=== PATIENT | female | born 1985 | race African-American/Black ===

== ENCOUNTER → 2017-05-13 | Outpatient (CLI) | payer BC ==
[2017-05-15 07:11] LABS: LYME DISEASE IGG AND IGM AB <0.91 ISR (0.00-0.90)
== END ==
LOC: OD 12:21
PROVIDERS: ATTEND Internal Medicine
DX: T73.2XXA Exhaustion due to exposure, initial encounter (principal)
CPT/HCPCS: 36415; 86617; 86618

== ENCOUNTER 2017-12-31 01:51 | Emergency (ER) | payer BC ==
[2017-12-31] MEDS ORDERED: IBUPROFEN 600 MG TABLET PO ONE (02:49)
[2017-12-31] MEDS ORDERED: OXYCODONE HCL IR 5 MG TABLET PO ONE (02:52)
--- NOTE | 2017-12-31 02:54 | ER Document Report ---
ED General - General Chief Complaint: L foot pain/ no injury Stated Complaint: LEFT FOOT PAIN NO KNOWN INJURY Time Seen by Provider: 12/31/17 02:32 TRAVEL OUTSIDE OF THE [place] IN LAST 30 DAYS: No - HPI Notes: Patient is a 32-year-old female history of nephrectomy from a ureteral blockage and UTI in 2011 and history of chronic pain currently on Butrans and oxycodone presents with report of progressive 2-3 day history of left plantar foot pain. Patient denies any cough congestion or fever, but arrives with a temperature of 100.1. She does report some urinary frequency and has a history of recurrent UTIs. The patient denies any chest pain or abdominal pain. She is unaware of any specific trauma to the feet. The patient reports no numbness or paresthesia. The patient states of foot pain is worse when she is ambulating. She was - Related Data Allergies/Adverse Reactions: iodine [Iodine] Allergy (Verified 12/12/15 14:51) rash nitrofurantoin macrocrystalline [From Macrodantin] Allergy (Verified 12/12/15 14 :51) Generalized rash Past Medical History - General Information source: Patient - Social History Smoking Status: Never Smoker Frequency of alcohol use: None Drug Abuse: None Lives with: Family Family History: Reviewed & Not Pertinent - Past Medical History Cardiac Medical History: Denies: Hx Coronary Artery Disease, Hx Heart Attack, Hx Hypertension Pulmonary Medical History: Denies: Hx Asthma, Hx Bronchitis, Hx COPD, Hx Pneumonia Neurological Medical History: Denies: Hx Cerebrovascular Accident, Hx Seizures Renal/ Medical History: Reports: Hx Kidney Stones Musculoskeltal Medical History: Denies Hx Arthritis Past Surgical History: Reports: Hx Appendectomy, Hx Section, Hx Genitourinary Surgery - CYSTO, Hx Gynecologic Surgery - d/c 1 wk ago, Hx Kidney (Renal Surgery) - Sep, 2012, 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 Denies recent illness. EENT: Denies eye, ear, throat, or mouth pain or symptoms. Denies nasal or sinus congestion or discharge. Denies throat, tongue, or mouth swelling or difficulty swallowing. CARDIOVASCULAR: Denies chest pain. Denies palpitations or racing or irregular heart beat. Denies ankle edema. RESPIRATORY: Denies cough, cold, or chest congestion. Denies shortness of breath, difficulty breathing, or wheezing. GASTROINTESTINAL: Denies abdominal pain or distention. Denies nausea, vomiting , or diarrhea. Denies blood in vomitus, stools, or per rectum. Denies black, tarry stools. Denies constipation. GENITOURINARY: Reports occasional dysuria and frequency. FEMALE GENITOURINARY: Denies vaginal discharge or odor. No concern for STD. MUSCULOSKELETAL: Denies back or neck pain or stiffness. SKIN: Denies rash, lesions or sores. HEMATOLOGIC : Denies easy bruising or bleeding. LYMPHATIC: Denies swollen, enlarged glands. NEUROLOGICAL: Denies confusion or altered mental status. Denies passing out or loss of consciousness. Denies dizziness or lightheadedness. Denies headache. Denies weakness or paralysis or loss of use of either side. Denies problems with gait or speech. Denies sensory loss, numbness, or tingling. Denies seizures. PSYCHIATRIC: Denies anxiety or stress. Denies depression, suicidal ideation, or homicidal ideation. ALL OTHER SYSTEMS REVIEWED AND NEGATIVE. Dictation was performed using [employer] voice recognition software Physical Exam - Vital signs Vitals: Temp Pulse Resp BP Pulse Ox 100.1 F 92 18 119/71 96 12/31/17 02:06 12/31/17 02:06 12/31/17 02:06 12/31/17 02:06 12/31/17 02:06 - Notes Notes: PHYSICAL EXAMINATION: GENERAL: Well-appearing, well-nourished and in no acute distress. HEAD: Atraumatic, normocephalic. EYES: Pupils equal round and reactive to light, extraocular movements intact, conjunctiva are normal. ENT: Nares patent, oropharynx clear without exudates. Moist mucous membranes. NECK: Normal range of motion, supple without lymphadenopathy LUNGS: Breath sounds clear to auscultation bilaterally and equal. No wheezes rales or rhonchi. HEART: Regular rate and rhythm without murmurs ABDOMEN: Soft, nontender, nondistended abdomen. No guarding, no rebound. No masses appreciated. Female : deferred Musculoskeletal: Normal range of motion. No cyanosis. Tender through the left plantar fascial region. There is no erythema. There is no bony deformity or crepitance. Distally the patient is neurovascularly intact. There is no proximal erythema or adenopathy. There is no ankle pain or knee pain. No cellulitis or abscess. NEUROLOGICAL: Cranial nerves grossly intact. Normal speech, normal gait. Normal sensory, motor exams PSYCH: Normal mood, normal affect. SKIN: Warm, Dry, normal turgor, no rashes or lesions noted. Course - Re-evaluation Re-evalutation: 12/31/17 07:32 Patient is currently on chronic narcotic analgesia. Patient was given ibuprofen. Lab work showed no evidence for renal insufficiency or significant infection or other abnormality. X-ray showed no obvious stress fracture or heel spur, but the patient was told that early stress fracture cannot be excluded. Patient may need follow-up imaging and to follow-up also with podiatry. - Vital Signs Vital signs: Temp Pulse Resp BP Pulse Ox 98.9 F 84 20 117/69 97 12/31/17 05:03 12/31/17 05:03 12/31/17 05:03 12/31/17 05:03 12/31/17 05:03 - Laboratory Result Diagrams: 12/31/17 02:55 12/31/17 02:55 Laboratory results interpreted by me: 12/31/17 12/31/17 02:50 02:55 RBC 3.64 L Hgb 11.1 L Hct 33.4 L Urine Blood MODERATE H Ur Leukocyte Esterase TRACE H Discharge - Discharge Clinical Impression: Plantar fasciitis of left foot Urinary tract infection Qualifiers: Urinary tract infection type: acute cystitis Hematuria presence: without hematuria Qualified Code(s): N30.00 - Acute cystitis without hematuria Condition: Stable Disposition: HOME, SELF-CARE Instructions: Plantar Fasciitis or Heel Spur ([facility]), Trimethoprim-Sulfa ([facility]), Urinary Tract Infection ([facility]) Additional Instructions: Use arch supports for your shoes. Use crutches if it is too painful to bear weight. Return to the emergency department case of fever, chills, vomiting. Prescriptions: Ibuprofen 600 mg PO Q8HP PRN #30 tablet PRN Reason: Sulfamethoxazole/Trimethoprim [Bactrim Ds Tablet] 1 each PO BID #10 tablet Forms: Return to Work Referrals: PODIATRY [Provider Group] - Follow up as needed
[2017-12-31 03:15] LABS: ABSOLUTE LYMPHOCYTES (AUTO) 2.2 10^3/uL (0.5-4.7); ABSOLUTE MONOCYTES (AUTO) 0.8 10^3/uL (0.1-1.4); ABSOLUTE NEUT (AUTO) 4.7 10^3/uL (1.7-8.2); BASOPHILS % (AUTO) 0.3 % (0-2); EOSINOPHILS % (AUTO) 0.5 % (0-6); HEMATOCRIT 33.4 % (36.0-47.0); HEMOGLOBIN 11.1 g/dL (12.0-15.5); LYMPHOCYTES % (AUTO) 28.5 % (13-45); MEAN CORPUSCULAR HEMOGLOBIN 30.5 pg (27.0-33.4); MEAN CORPUSCULAR HGB CONC 33.2 g/dL (32.0-36.0); MEAN CORPUSCULAR VOLUME 92 fl (80-97); MONOCYTES % (AUTO) 10.3 % (3-13); PLATELET COUNT 251 10^3/uL (150-450); RED BLOOD COUNT 3.64 10^6/uL (3.72-5.28); RED CELL DISTRIBUTION WIDTH 13.6 % (11.5-14.0); SEGMENTED NEUTROPHILS % (AUTO) 60.4 % (42-78); TOTAL CELLS COUNTED % (AUTO) 100 %; WHITE BLOOD COUNT 7.8 10^3/uL (4.0-10.5)
[2017-12-31 03:18] LABS: APPEARANCE,URINE CLEAR; BILIRUBIN,URINE NEGATIVE (NEGATIVE); COLOR,URINE YELLOW; GLUCOSE, URINE NEGATIVE (NEGATIVE); KETONES,URINE NEGATIVE (NEGATIVE); LEUKOCYTE ESTERASE,URINE TRACE (NEGATIVE); NITRITE,URINE NEGATIVE (NEGATIVE); PROTEIN,URINE NEGATIVE (NEGATIVE); URINE SPECIFIC GRAVITY 1.024; UROBILINOGEN,URINE NEGATIVE mg/dL (<2.0)
[2017-12-31 03:25] LABS: ANION GAP 12 (5-19); BLOOD UREA NITROGEN 15 mg/dL (7-20); CALCIUM 9.4 mg/dL (8.4-10.2); CARBON DIOXIDE 25 mmol/L (22-30); CHLORIDE 104 mmol/L (98-107); GLUCOSE 93 mg/dL (75-110); POTASSIUM 4.4 mmol/L (3.6-5.0); SODIUM 140.5 mmol/L (137-145)
--- NOTE | 2017-12-31 03:42 | RADIOLOGY REPORT (SQ) ---
EXAM DESCRIPTION: FOOT LEFT 2 VIEWS CLINICAL HISTORY: 32 years, Female, L plantar fasciitis pain COMPARISON: None. NUMBER OF VIEWS: 2 Findings: Bones, joints, and soft tissues appear intact. IMPRESSION: Normal left foot.
[2017-12-31] MEDS ORDERED: SULFAMETHOXAZOLE/TRIMETHOPRIM 800-160 MG TABLET PO ONE (04:38)
[2017-12-31 05:04] VITALS: BP 117/69
== END 2017-12-31 05:00 | disposition home or self-care (01) ==
LOC: ER 01:51
DX: M72.2 Plantar fascial fibromatosis (principal); N30.00 Acute cystitis without hematuria; M79.672 Pain in left foot
CPT/HCPCS: 36415; 80048; 81001; 81025; 85025; 87086; 99284

== ENCOUNTER 2018-01-15 09:56 | Emergency (ER) | payer OTHER, BC ==
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
[2018-01-15] MEDS ORDERED: HYDROCODONE/ACETAMINOPHEN 5-325 MG TABLET PO ONE (12:54)
[2018-01-15 13:26] VITALS: BP 102/66
== END 2018-01-15 13:25 | disposition home or self-care (01) ==
LOC: ER 09:56
DX: S30.1XXA Contusion of abdominal wall, initial encounter (principal); S20.229A Contusion of unspecified back wall of thorax, initial encounter; M54.89 Other dorsalgia; V43.52XA Car driver injured in collision with other type car in traffic accident, initial encounter; Z88.1 Allergy status to other antibiotic agents
CPT/HCPCS: 72070; 74176; 81025; 99284

== ENCOUNTER 2018-04-16 11:15 | Emergency (ER) | payer BC, OTHER ==
--- NOTE | 2018-04-16 12:16 | ER Document Report ---
ED Medical Screen (RME) - General Chief Complaint: Vag Bleeding, +preg <12wks Stated Complaint: VAGINAL BLEEDING Time Seen by Provider: 04/16/18 12:11 Notes: RAPID MEDICAL EVALUATION DISCLOSURE I have seen this patient as part of a Rapid Medical Evaluation and, if applicable, placed any initially appropriate orders. The patient will be seen and fully evaluated, including a full history and physical exam, by a provider ( in Main ED or Fast Track) when a room becomes available. 33-year-old female approximately 4 weeks gestation here with complaints of lower abdominal cramping and vaginal spotting that started overnight. She is had some small dime sized clots with the bleeding. Has taken Aleve for the cramping. Does not have any dysuria fevers chills discharge. Has not yet followed up with [facility]. EXAM No abdominal TTP No CVA TTP TRAVEL OUTSIDE OF THE [place]S. IN LAST 30 DAYS: No - Related Data Allergies/Adverse Reactions: iodine [Iodine] Allergy (Verified 04/16/18 12:07) rash nitrofurantoin macrocrystalline [From Macrodantin] Allergy (Verified 04/16/18 12 :07) Generalized rash Past Medical History - Social History Chew tobacco use (# tins/day): No Frequency of alcohol use: None Drug Abuse: None - Past Medical History Cardiac Medical History: Denies: Hx Coronary Artery Disease, Hx Heart Attack, Hx Hypertension Pulmonary Medical History: Denies: Hx Asthma, Hx Bronchitis, Hx COPD, Hx Pneumonia Neurological Medical History: Denies: Hx Cerebrovascular Accident, Hx Seizures Renal/ Medical History: Reports: Hx Kidney Stones. 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
[2018-04-16 13:07] LABS: APPEARANCE,URINE CLEAR; BILIRUBIN,URINE NEGATIVE (NEGATIVE); COLOR,URINE YELLOW; GLUCOSE, URINE NEGATIVE (NEGATIVE); KETONES,URINE NEGATIVE (NEGATIVE); LEUKOCYTE ESTERASE,URINE TRACE (NEGATIVE); NITRITE,URINE NEGATIVE (NEGATIVE); PROTEIN,URINE NEGATIVE (NEGATIVE); URINE SPECIFIC GRAVITY 1.012; UROBILINOGEN,URINE NEGATIVE mg/dL (<2.0)
[2018-04-16 13:41] LABS: T.VAGINALIS (WET MOUNT) NO TRICHOMONAS SEEN; WBCS (WET MOUNT) 2+ WBCS SEEN; YEAST (WET MOUNT) NO YEAST SEEN
[2018-04-16 13:42] LABS: BACTERIA (WET MOUNT) 3+ BACTERIA SEEN; RBCS (WET MOUNT) 4+ RBCS SEEN
--- NOTE | 2018-04-16 14:12 | ER Document Report ---
ED GI/ - General Chief Complaint: Vag Bleeding, +preg <12wks Stated Complaint: VAGINAL BLEEDING Time Seen by Provider: 04/16/18 12:11 Mode of Arrival: Ambulatory Information source: Patient Notes: 33-year-old is 3-4 weeks. She had a positive test at [facility] yesterday. She started cramping last night and bleeding this morning. No vaginal discharge or odor and no dysuria. No fever or chills. TRAVEL OUTSIDE OF THE [place] IN LAST 30 DAYS: No - Related Data Allergies/Adverse Reactions: iodine [Iodine] Allergy (Verified 04/16/18 12:07) rash nitrofurantoin macrocrystalline [From Macrodantin] Allergy (Verified 04/16/18 12 :07) Generalized rash Past Medical History - General Information source: Patient - Social History Smoking Status: Never Smoker Chew tobacco use (# tins/day): No Frequency of alcohol use: None Drug Abuse: None Lives with: Family Family History: Reviewed & Not Pertinent Patient has suicidal ideation: No Patient has homicidal ideation: No Renal/ Medical History: Reports: Hx Kidney Stones Past Surgical History: Reports: Hx Abdominal Surgery - multiple laps, Hx Appendectomy, Hx Section - age 28 weeks , Hx Genitourinary Surgery - CYSTO, Hx Kidney (Renal Surgery) - Sep, 2012, 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 - Immunizations Immunizations up to date: Yes Hx Diphtheria, Pertussis, Tetanus Vaccination: Yes Hx Pneumococcal Vaccination: 10/20/00 Review of Systems - Review of Systems Constitutional: No symptoms reported EENT: No symptoms reported Cardiovascular: No symptoms reported Respiratory: No symptoms reported Gastrointestinal: No symptoms reported Genitourinary: No symptoms reported Female Genitourinary: See HPI Musculoskeletal: No symptoms reported Skin: No symptoms reported Hematologic/Lymphatic: No symptoms reported Neurological/Psychological: No symptoms reported Physical Exam - Vital signs Vitals: Temp Pulse Resp BP Pulse Ox 99.2 F 75 18 114/79 100 04/16/18 11:45 04/16/18 11:45 04/16/18 11:45 04/16/18 11:45 04/16/18 11:45 Interpretation: Normal - General General appearance: Appears well, Alert - HEENT Head: Normocephalic, Atraumatic Eyes: Normal Pupils: PERRL Neck: Supple - Respiratory Respiratory status: No respiratory distress Chest status: Nontender Breath sounds: Normal Chest palpation: Normal - Cardiovascular Rhythm: Regular Heart sounds: Normal auscultation Murmur: No - Abdominal Inspection: Normal Distension: No distension Bowel sounds: Normal Tenderness: Nontender Organomegaly: No organomegaly - Genitourinary External exam: Normal Speculum exam: Cervix closed Vaginal bleeding: Mild - mucoid dark blood - Back Back: Normal, Nontender. No: CVA tenderness - Extremities General upper extremity: Normal inspection, Nontender, Normal color, Normal ROM , Normal temperature General lower extremity: Normal inspection, Nontender, Normal color, Normal ROM , Normal temperature, Normal weight bearing. No: Jordana's sign - Neurological Neuro grossly intact: Yes Cognition: Normal Orientation: AAOx4 Kennedy Coma Scale Eye Opening: Spontaneous Jeremy Coma Scale Verbal: Oriented Kennedy Coma Scale Motor: Obeys Commands Jeremy Coma Scale Total: 15 Speech: Normal Motor strength normal: LUE, RUE, LLE, RLE Sensory: Normal - Psychological Associated symptoms: Normal affect, Normal mood - Skin Skin Temperature: Warm Skin Moisture: Dry Skin Color: Normal Course - Re-evaluation Re-evalutation: 04/16/18 16:10 Ultrasound does not show any gestational sac or yolk sac anywhere which would be consistent with a quantitative of 69. I will have the patient re-draw a quantitative in 2 days. Her cell phone number is [phone] and I told her I will let her know about the RhoGam status. 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 The lab did not do the RhoGam when it was requested so there is a delay in the result. 04/16/18 16:13 Urinalysis, STD cultures and wet prep are negative. 04/16/18 17:20 Confirmed that the RhoGam is not indicated her blood type is A+. - Vital Signs Vital signs: Temp Pulse Resp BP Pulse Ox 98.6 F 84 16 127/68 H 98 04/16/18 16:22 04/16/18 16:22 04/16/18 16:22 04/16/18 16:22 04/16/18 16:22 - Laboratory Laboratory results interpreted by me: 04/16/18 04/16/18 12:40 12:40 Beta HCG, Quant 68.31 H Urine Blood LARGE H Ur Leukocyte Esterase TRACE H Discharge - Discharge Clinical Impression: Vaginal bleeding in early Condition: Good Disposition: HOME, SELF-CARE Instructions: Acetaminophen, Bleeding During Early ([facility]) Additional Instructions: Repeat the serum quantitative test in 48 hours. If the number goes higher than 69 you are still if the number goes down you are having a miscarriage Follow-up with [facility] Return to the emergency room for any increased pain or bleeding. Forms: Follow-Up Laboratory Testing Referrals: SELENE CONDE MD [Primary Care Provider] - Follow up as needed
[2018-04-16 15:03] LABS: CHLAM PCR NOT DETECTED (NOT DETECT); GON PCR NOT DETECTED (NOT DETECT)
--- NOTE | 2018-04-16 15:42 | RADIOLOGY REPORT (SQ) ---
EXAM DESCRIPTION: U/S OB TRANSVAGINAL W/O DOP COMPLETED DATE/TIME: 04/16/2018 2:25 pm REASON FOR STUDY: cramping bleeding; eval ectopic miscarriage COMPARISON: None. TECHNIQUE: Transvaginal static and realtime grayscale images acquired of the pelvis. Additional stephanie cted spectral and color Doppler images recorded. All images stored on PACs. [id number] LIMITATIONS: None. FINDINGS: UTERUS: No masses. No anomalies. GESTATIONAL SAC: Not visualized YOLK SAC: Not visualized POLE: Not visualized RIGHT ADNEXA: Right ovary was not visualized No adnexal free fluid. No adnexal masses. LEFT ADNEXA: Normal ovary with normal vascular flow. No adnexal free fluid. No adnexal masses. FREE FLUID: None. OTHER: No other significant finding. IMPRESSION: No IUP is identified. BHCG LEVEL APPROPRIATE FOR ENDOMETRIAL FINDINGS. CONSIDER F/U BHCG AND/OR ULTRASOUND FOR VERIFICATION AND TO EXCLUDE ECTOPIC . Trimester of : First - 0 to 13 weeks. TECHNICAL DOCUMENTATION: JOB ID: [id number] [employer]- All Rights Reserved Reading location - IP/workstation name: [email or web address]
[2018-04-16 16:27] VITALS: BP 127/68
== END 2018-04-16 16:27 | disposition home or self-care (01) ==
LOC: ER 11:15
DX: O20.9 Hemorrhage in early pregnancy, unspecified (principal); O26.899 Other specified pregnancy related conditions, unspecified trimester; R25.2 Cramp and spasm; Z3A.00 Weeks of gestation of pregnancy not specified; Z87.59 Personal history of other complications of pregnancy, childbirth and the puerperium; Z88.1 Allergy status to other antibiotic agents
CPT/HCPCS: 36415; 76817; 81001; 84702; 86900; 86901; 87210; 87491; 87591; 99284

== ENCOUNTER → 2018-04-18 | Outpatient (CLI) | payer OTHER | LOC: LAB 17:13 | PROVIDERS: ATTEND Nurse Practitioner Family | DX: O20.9 Hemorrhage in early pregnancy, unspecified (principal); Z3A.00 Weeks of gestation of pregnancy not specified | CPT/HCPCS: 36415; 84702 ==

== ENCOUNTER 2018-07-08 15:11 | Emergency (ER) | payer OTHER ==
[2018-07-08] MEDS ORDERED: ACETAMINOPHEN 325 MG TABLET PO ONE (16:31)
--- NOTE | 2018-07-08 16:34 | ER Document Report ---
ED GI/ - General TRAVEL OUTSIDE OF THE U.S. IN LAST 30 DAYS: No <KATE GORDON - Last Filed: 07/08/18 16:32> <JULIETA FRAZIER Chantal - Last Filed: 07/08/18 21:11> - General Chief Complaint: Flank Pain Stated Complaint: FLANK PAIN Time Seen by Provider: 07/08/18 16:27 Notes: Chief complaint: Left flank pain History of complain:( obtained from----patient) 33 years old female presents today with left flank pain radiating to the groin nearly further last 1 week. Gradually getting worse therefore present to the ED slight nausea no vomiting. Denies any dysuria frequency or urgency. Denies any fever chills or other constitutional symptoms. Denies any constipation or diarrhea. 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 Onset: As above Duration: Gradual Severity: Moderate Quality: Sharp Context: Unknown Exacerbating factor and relieving factors: None REVIEW OF SYSTEMS: CONSTITUTIONAL : Denies fever, chills, or sweats. Denies recent illness. EENT: Denies eye, ear, throat, or mouth pain or symptoms. Denies nasal or sinus congestion or discharge. Denies throat, tongue, or mouth swelling or difficulty swallowing. CARDIOVASCULAR: Denies chest pain. Denies palpitations or racing or irregular heart beat. Denies ankle edema. RESPIRATORY: Denies cough, cold, or chest congestion. Denies shortness of breath, difficulty breathing, or wheezing. GASTROINTESTINAL: Denies distention. Denies nausea, vomiting, or diarrhea. Denies blood in vomitus, stools, or per rectum. Denies black, tarry stools. Denies constipation. GENITOURINARY: Denies difficulty urinating, painful urination, burning, frequency, blood in urine, or discharge. FEMALE GENITOURINARY: Denies vaginal bleeding, heavy or abnormal periods, irregular periods. Denies vaginal discharge or odor. MUSCULOSKELETAL: Denies back or neck pain or stiffness. Denies joint pain or swelling. SKIN: Denies rash, lesions or sores. HEMATOLOGIC : Denies easy bruising or bleeding. LYMPHATIC: Denies swollen, enlarged glands. NEUROLOGICAL: Denies confusion or altered mental status. Denies passing out or loss of consciousness. Denies dizziness or lightheadedness. Denies headache. Denies weakness or paralysis or loss of use of either side. Denies problems with gait or speech. Denies sensory loss, numbness, or tingling. Denies seizures. PSYCHIATRIC: Denies anxiety or stress. Denies depression, suicidal ideation, or homicidal ideation. ALL OTHER SYSTEMS REVIEWED AND NEGATIVE. PHYSICAL EXAMINATION: GENERAL: Well-appearing, well-nourished and in no acute distress. HEAD: Atraumatic, normocephalic. EYES: Pupils equal round and reactive to light, extraocular movements intact, conjunctiva are normal. ENT: Nares patent, oropharynx clear without exudates. Moist mucous membranes. NECK: Normal range of motion, supple without lymphadenopathy LUNGS: Breath sounds clear to auscultation bilaterally and equal. No wheezes rales or rhonchi. HEART: Regular rate and rhythm without murmurs ABDOMEN: Soft, tender over the left flank as well as left lower quadrant no rebound tenderness or guarding, nondistended abdomen. No guarding, no rebound. No masses appreciated. Examination of genitals-deferred Musculoskeletal: Normal range of motion, no pitting or edema. No cyanosis. NEUROLOGICAL: Cranial nerves grossly intact. Normal speech, normal gait. Normal sensory, motor exams PSYCH: Normal mood, normal affect. SKIN: Warm, Dry, normal turgor, no rashes or lesions noted. Dictation was performed using [employer] voice recognition software (KATE GORDON) - [facility] Notes: 07/08/18 16:33 Dictated (KATE GORDON) - Related Data Allergies/Adverse Reactions: iodine [Iodine] Allergy (Verified 07/08/18 15:12) rash nitrofurantoin macrocrystalline [From Macrodantin] Allergy (Verified 07/08/18 15 :12) Generalized rash Past Medical History - General Information source: Patient - Social History Smoking Status: Never Smoker Frequency of alcohol use: None Drug Abuse: None Lives with: Family Family History: Reviewed & Not Pertinent Patient has suicidal ideation: No Patient has homicidal ideation: No - Past Medical History Cardiac Medical History: Denies: Hx Coronary Artery Disease, Hx Heart Attack, Hx Hypertension Pulmonary Medical History: Denies: Hx Asthma, Hx Bronchitis, Hx COPD, Hx Pneumonia Neurological Medical History: Denies: Hx Cerebrovascular Accident, Hx Seizures Renal/ Medical History: Reports: Hx Kidney Stones. Denies: Hx Peritoneal Dialysis Musculoskeletal Medical History: Denies Hx Arthritis Past Surgical History: Reports: Hx Abdominal Surgery - multiple laps, Hx Appendectomy, Hx Section, Hx Genitourinary Surgery - CYSTO, Hx Gynecologic Surgery - D&C, Hx Kidney (Renal Surgery) - Rt kidney removal - Immunizations Immunizations up to date: Yes Hx Diphtheria, Pertussis, Tetanus Vaccination: Yes Hx Pneumococcal Vaccination: 10/20/00 <KATE GORDON - Last Filed: 07/08/18 16:32> Review of Systems <KATE GORDON - Last Filed: 07/08/18 16:32> <JULIETA FRAZIER - Last Filed: 07/08/18 21:11> - Review of Systems Notes: Dictated (KATE GORDON) Physical Exam <KATE GORDON - Last Filed: 07/08/18 16:32> <JULIETA FRAZIER - Last Filed: 07/08/18 21:11> - Vital signs Vitals: Temp Pulse Resp BP Pulse Ox 98.3 F 98 16 111/68 100 07/08/18 15:16 07/08/18 15:16 07/08/18 15:16 07/08/18 15:16 07/08/18 15:16 - Notes Notes: Dictated (KATE GORDON) Course - Laboratory Result Diagrams: 07/08/18 16:40 07/08/18 16:40 <JULIETA FRAZIER - Last Filed: 07/08/18 21:11> - Vital Signs Vital signs: Temp Pulse Resp BP Pulse Ox 98.3 F 98 16 111/68 100 07/08/18 15:16 07/08/18 15:16 07/08/18 15:16 07/08/18 15:16 07/08/18 15:16 - Laboratory Laboratory results interpreted by me: 07/08/18 07/08/18 07/08/18 16:40 16:40 16:40 RBC 3.64 L Hgb 11.5 L Hct 33.5 L Monocytes % 14.6 H Sodium 134.7 L BUN 6 L Alkaline Phosphatase 32 L Albumin 3.4 L Beta HCG, Quant Urine Blood SMALL H Ur Leukocyte Esterase MODERATE H Urine HCG, Qual POSITIVE H 07/08/18 16:40 RBC Hgb Hct Monocytes % Sodium BUN Alkaline Phosphatase Albumin Beta HCG, Quant 752472.00 H Urine Blood Ur Leukocyte Esterase Urine HCG, Qual Discharge <KATE GORDON - Last Filed: 07/08/18 16:32> <JULIETA FRAZIER - Last Filed: 07/08/18 21:11> - Discharge Clinical Impression: Urinary tract infection Qualifiers: Urinary tract infection type: acute cystitis Hematuria presence: with hematuria Qualified Code(s): N30.01 - Acute cystitis with hematuria Condition: Stable Disposition: HOME, SELF-CARE Additional Instructions: URINARY TRACT INFECTION: Your evaluation indicates that you have a urinary tract infection. This is due to germs growing in the bladder. This is a common problem. This infection usually responds quickly to antibiotics. Your antibiotic should be taken exactly as prescribed. Drink plenty of fluids -- three to four quarts a day. Occasionally, a bladder anesthetic will be prescribed to help stop the feeling of urgency until the antibiotic has a chance to clear the infection. This may cause your urine to be dark orange. Certain urine infections require a culture. If the doctor obtained a culture, the results will be back in two days. You should call to see if a change in treatment is needed. A repeat urinalysis after you finish treatment is often recommended. The physician will let you know if further testing is required. Call the doctor if you develop fever, chills, flank pain, inability to urinate, or blood in the urine. ANTIBIOTIC THERAPY: You have been given an antibiotic prescription. It's important that you take all the medication, unless instructed otherwise by your physician. Failure to complete the entire course can result in relapse of your condition. Common side effects of antibiotics include nausea, intestinal cramping, or diarrhea. Women may develop vaginal yeast infections, and babies can get yeast (thrush) in the mouth following the use of antibiotics. Contact your physician if you develop significant side effects from this medication. Allergy to this antibiotic can result in hives, wheezing, faintness, or itching. If symptoms of allergy occur, stop the medication and call the doctor. CEPHALEXIN: The antibiotic you've been prescribed is a member of the cephalosporin class. This type of antibiotic covers a wide variety of infections, including those of the skin, lungs, and urinary tract. It's useful for staph infections. This antibiotic is slightly similar to the penicillin family. In rare cases , a person who is allergic to penicillin will also be allergic to this medication. If you have had a severe allergic reaction to penicillin, and have not taken this antibiotic since that time, notify your doctor. Antibiotics which cover many germs ("broad spectrum" antibiotics) are more likely to cause diarrhea or "yeast" infections. Women prone to vaginal yeast problems may suffer an attack after taking this antibiotic. In infants, oral thrush (white spots "stuck" on the cheek) or yeast diaper rash may result. See your doctor if these problems occur. Call at once if you develop itching, hives , shortness of breath, or lightheadedness. FOLLOW-UP CARE: If you have been referred to a physician for follow-up care, call the physician s office for an appointment as you were instructed or within the next two days. If you experience worsening or a significant change in your symptoms, notify the physician immediately or return to the Emergency Department at any time for re-evaluation. Please follow-up with your [employer] or primary care provider in the next 3-5 days for follow-up. Taking all antibiotics as prescribed, push fluids. Take Tylenol every 4 hours as needed for pain. Return to the emergency department for any worrisome or worsening symptoms. Prescriptions: Cephalexin Monohydrate [Keflex 500 mg Capsule] 500 mg PO Q6H 5 Days #20 capsule Referrals: DUNIA LUCIANO NP [Primary Care Provider] - Follow up as needed
[2018-07-08 17:12] LABS: ABSOLUTE EOSINOPHILS # (AUTO) 0.1 10^3/uL (0.0-0.6); ABSOLUTE MONOCYTES (AUTO) 0.9 10^3/uL (0.1-1.4); ABSOLUTE NEUT (AUTO) 3.3 10^3/uL (1.7-8.2); BASOPHILS % (AUTO) 0.4 % (0-2); HEMATOCRIT 33.5 % (36.0-47.0); HEMOGLOBIN 11.5 g/dL (12.0-15.5); LYMPHOCYTES % (AUTO) 32.3 % (13-45); MEAN CORPUSCULAR HEMOGLOBIN 31.5 pg (27.0-33.4); MEAN CORPUSCULAR HGB CONC 34.3 g/dL (32.0-36.0); MEAN CORPUSCULAR VOLUME 92 fl (80-97); MONOCYTES % (AUTO) 14.6 % (3-13); PLATELET COUNT 276 10^3/uL (150-450); RED BLOOD COUNT 3.64 10^6/uL (3.72-5.28); RED CELL DISTRIBUTION WIDTH 13.6 % (11.5-14.0); SEGMENTED NEUTROPHILS % (AUTO) 51.7 % (42-78); TOTAL CELLS COUNTED % (AUTO) 100 %; WHITE BLOOD COUNT 6.3 10^3/uL (4.0-10.5)
[2018-07-08 17:18] LABS: APPEARANCE,URINE CLEAR; BILIRUBIN,URINE NEGATIVE (NEGATIVE); COLOR,URINE YELLOW; GLUCOSE, URINE NEGATIVE (NEGATIVE); KETONES,URINE NEGATIVE (NEGATIVE); LEUKOCYTE ESTERASE,URINE MODERATE (NEGATIVE); NITRITE,URINE NEGATIVE (NEGATIVE); PROTEIN,URINE NEGATIVE (NEGATIVE); URINE SPECIFIC GRAVITY 1.008; UROBILINOGEN,URINE NEGATIVE mg/dL (<2.0)
[2018-07-08 17:28] LABS: ALANINE AMINOTRANSFERASE 21 U/L (9-52); ALBUMIN 3.4 g/dL (3.5-5.0); ALKALINE PHOSPHATASE 32 U/L (38-126); ANION GAP 7 (5-19); ASPARTATE AMINO TRANSFERASE 16 U/L (14-36); BILIRUBIN,DIRECT 0.2 mg/dL (0.0-0.4); BILIRUBIN,TOTAL 0.2 mg/dL (0.2-1.3); BLOOD UREA NITROGEN 6 mg/dL (7-20); CALCIUM 8.8 mg/dL (8.4-10.2); CARBON DIOXIDE 23 mmol/L (22-30); CHLORIDE 105 mmol/L (98-107); GLUCOSE 78 mg/dL (75-110); POTASSIUM 4.2 mmol/L (3.6-5.0); SODIUM 134.7 mmol/L (137-145)
--- NOTE | 2018-07-08 20:14 | RADIOLOGY REPORT (SQ) ---
EXAM DESCRIPTION: U/S 1TRIMESTER/1GEST W/DOPPLER COMPLETED DATE/TIME: 07/08/2018 7:24 pm REASON FOR STUDY: /abdominal pain COMPARISON: None. TECHNIQUE: Transabdominal static and realtime grayscale images acquired of the pelvis. Additional se lected spectral and color Doppler images recorded. All images stored on PACs. bHCG: Pending. CLINICAL DATES: 12 weeks 0 days LIMITATIONS: None. FINDINGS: FETUS: Living intrauterine . ULTRASOUND EGA: 12 weeks 1 day ULTRASOUND JOSEPH: 01/19/2019 CRL: 5.6 cm FHR: 162 beats per minute. SUBCHORIONIC BLEED: No. SIZE OF BLEED: Not applicable. UTERUS: No masses. No anomalies. CERVICAL LENGTH: 3.2 cm Closed. RIGHT ADNEXA: Normal ovary with normal vascular flow. No adnexal free fluid. No adnexal masses. LEFT ADNEXA: Ovary not identified. No adnexal free fluid. No adnexal masses. FREE FLUID: None. OTHER: No other significant finding. IMPRESSION: LIVING INTRAUTERINE . EGA 12 weeks 1 day Trimester of : First - 0 to 13 weeks. TECHNICAL DOCUMENTATION: JOB ID: [id number] 2010 [employer]- All Rights Reserved Reading location - IP/workstation name: [email or web address]
[2018-07-08] MEDS ORDERED: MORPHINE SULFATE 10 MG/ML INJ IM ONE (20:27)
[2018-07-08] MEDS ORDERED: CEPHALEXIN 500 MG CAPSULE PO ONE (21:09)
[2018-07-08 21:36] VITALS: BP 114/68
== END 2018-07-08 21:36 | disposition home or self-care (01) ==
LOC: ER 15:11
DX: N39.0 Urinary tract infection, site not specified (principal)
CPT/HCPCS: 99284; 96372; 36415; 87086; 84702; 85025; 81025; 80053; 81001; 76801; 93976; J2270